=== PATIENT | female | born 1950 | race Caucasian/White ===

== ENCOUNTER 2018-01-23 13:27 | Outpatient (CLI) | payer BC | END 2018-01-23 18:53 | disposition home or self-care (01) | LOC: SMA 13:27 | PROVIDERS: ATTEND Family Medicine | DX: R92.8 Other abnormal and inconclusive findings on diagnostic imaging of breast (principal) | CPT/HCPCS: 76641; 77066 ==

== ENCOUNTER 2019-02-26 14:31 | Outpatient (CLI) | payer BC | END 2019-02-26 21:01 | disposition home or self-care (01) | LOC: SMA 14:31 | PROVIDERS: ATTEND Family Medicine | DX: Z12.31 Encounter for screening mammogram for malignant neoplasm of breast (principal) | CPT/HCPCS: 77067 ==

== ENCOUNTER 2020-07-30 09:18 | Outpatient (CLI) | payer BC | END 2020-07-30 20:48 | disposition home or self-care (01) | LOC: SMA 09:18 | PROVIDERS: ATTEND Family Medicine | DX: Z12.31 Encounter for screening mammogram for malignant neoplasm of breast (principal) | CPT/HCPCS: 77067 ==

== ENCOUNTER 2021-08-03 08:58 | Outpatient (CLI) | payer BC | END 2021-08-03 19:27 | disposition home or self-care (01) | LOC: SMA 08:58 | PROVIDERS: ATTEND Family Medicine | DX: Z12.31 Encounter for screening mammogram for malignant neoplasm of breast (principal); N64.89 Other specified disorders of breast | CPT/HCPCS: 77067 ==

== ENCOUNTER 2023-02-17 10:26 | Emergency (ER) | payer BC ==
[~2023-02-17] VITALS: Ht 162.6 cm; Wt 76.2 kg
[2023-02-17 10:35] VITALS: BP_SYST 131
--- NOTE | 2023-02-17 10:57 | NUR ---
Placed in room 2 . Placed on rn cardiac, blood pressure machine and pulse oximeter. To gown for exam. Side rails up. Report given to Raffaele QUESADA.
--- NOTE | 2023-02-17 11:00 | NUR ---
Patient BIB spouse from home. Chief Complaint:patient reports hx of radical hysterectomy on 01.12.23 for Uterine CA. 3 paracentesis needed since procedure with most recent being 02.13.23. Patient reports experiencing vaginal leakage of fluid that she describes as ascites like in color and consistency with blood tinge, patient reports leakage exceeds multiple pads unable to count how many. Patient denies pain at this time. Patient a&ox4 and stable. at bedside.
--- NOTE | 2023-02-17 11:03 | NUR ---
Lab at bedside
--- NOTE | 2023-02-17 11:08 | NUR ---
Patient advised by US not to urinate yet.
--- NOTE | 2023-02-17 11:14 | NUR ---
Patient taken to radiology now.
[2023-02-17 11:15] LABS: BASOPHILS # (AUTO) 0.1 K/uL (0.0-0.2); BASOPHILS % (AUTO) 0.8 % (0.0-2.0); EOSINOPHILS # (AUTO) 0.3 K/uL (0.0-0.4); EOSINOPHILS % (AUTO) 3.3 % (0.0-4.0); HEMATOCRIT 31.5 % (36-48); HEMOGLOBIN 10.5 g/dL (12.0-16.0); LYMPHOCYTES # (AUTO) 1.2 K/uL (1.0-5.5); LYMPHOCYTES % (AUTO) 14.4 % (20.5-51.5); MEAN CORPUSCULAR HEMOGLOBIN 29 pg (27-31); MEAN CORPUSCULAR HGB CONC 33 % (32-36); MEAN CORPUSCULAR VOLUME 87 fL (79.0-98.0); MONOCYTES # (AUTO) 0.4 K/uL (0.0-1.0); MONOCYTES % (AUTO) 4.6 % (1.7-9.3); NEUTROPHILS # (AUTO) 6.3 K/uL (1.8-7.7); NEUTROPHILS % (AUTO) 76.9 % (40.0-70.0); PLATELET COUNT (AUTO) 374 K/uL (130-430); RED BLOOD CELL COUNT(AUTO) 3.62 MIL/uL (4.2-6.2); RED CELL DISTRIBUTION WIDTH 13.4 % (9.0-15.0); WHITE BLOOD COUNT (AUTO) 8.1 K/uL (4.8-10.8)
[2023-02-17 11:27] LABS: ANION GAP 6 (5-15); CALCIUM 8.5 mg/dL (8.4-11.0); CHLORIDE 101 mmol/L (98-107); CREATININE 0.85 mg/dL (0.55-1.30); GLUCOSE 147 mg/dL (70-99); UREA NITROGEN, BLOOD 14 mg/dL (8-21)
[2023-02-17 11:32] LABS: ALANINE AMINOTRANSFERASE 14 U/L (12-78); ALBUMIN 2.4 g/dL (3.4-4.8); ASPARTATE AMINOTRANSFERASE 13 U/L (10-37); TOTAL BILIRUBIN 0.2 mg/dL (0.0-1.0)
[2023-02-17 11:41] LABS: PROTHROMBIN TIME 10.4 SECS (9.5-12.5)
--- NOTE | 2023-02-17 12:40 | NUR ---
Urine taken to lab
--- NOTE | 2023-02-17 13:11 | NUR ---
DR. EL AT BEDSIDE TO DISCUSS POC.
[2023-02-17 13:24] LABS: BILIRUBIN,URINE NEGATIVE (NEGATIVE); CLARITY/URINE CLEAR (CLEAR); COLOR,URINE YELLOW (YELLOW); GLUCOSE,URINE NEGATIVE (NEGATIVE); KETONES,URINE NEGATIVE (NEGATIVE); LEUKOCYTE ESTERASE ,URINE TRACE (NEGATIVE); NITRITE, URINE NEGATIVE (NEGATIVE); PH,URINE 6.5 (5.0-8.0); PROTEIN URINE NEGATIVE (NEGATIVE); UROBILINOGEN,URINE 0.2 (0.2-1.0)
[2023-02-17 13:26] LABS: BLOOD, URINE TRACE (NEGATIVE)
[2023-02-17 13:45] LABS: RBC,URINE 0-3 /HPF (0-3); WBC,URINE 0-3 /HPF (0-3)
[2023-02-17 13:46] LABS: BACTERIA,URINE FEW /HPF (None Seen)
[2023-02-17 14:24] VITALS: BP_SYST 123
--- NOTE | 2023-02-17 14:27 | NUR ---
Patient given written and verbal discharge instructions and verbalizes understanding. ER MD Lucero discussed with patient the results and treatment provided. Patient in stable condition. Opportunity for questions provided and answered. Medication side effect fact sheet provided.
== END 2023-02-17 14:27 | disposition home or self-care (01) ==
LOC: SED 10:26
DX: N93.9 Abnormal uterine and vaginal bleeding, unspecified (principal); Z85.42 Personal history of malignant neoplasm of other parts of uterus; Z79.899 Other long term (current) drug therapy
CPT/HCPCS: 36415; 76376; 76857; 80053; 81000; 85025; 85610-TC; 85730-TC; 87086; 99284

== ENCOUNTER 2023-02-21 10:24 | Emergency (ER) | payer BC ==
[~2023-02-21] VITALS: Ht 162.6 cm; Wt 77.1 kg
[2023-02-21 10:30] VITALS: BP_SYST 131
--- NOTE | 2023-02-21 11:10 | NUR ---
Pt brought by self, A&Ox4, pt presents to ER for Hemoglobin levels f/u, per patient last monday Hgb was 10.1, c/o mild weakness, denies bleeding SOB or chest pain, skin pink and warm, cap refill <3, will cont to monitor.
[2023-02-21 11:57] LABS: BASOPHILS # (AUTO) 0.1 K/uL (0.0-0.2); EOSINOPHILS # (AUTO) 0.3 K/uL (0.0-0.4); EOSINOPHILS % (AUTO) 3.7 % (0.0-4.0); HEMATOCRIT 32.8 % (36-48); HEMOGLOBIN 10.9 g/dL (12.0-16.0); LYMPHOCYTES # (AUTO) 1.3 K/uL (1.0-5.5); LYMPHOCYTES % (AUTO) 17.4 % (20.5-51.5); MEAN CORPUSCULAR HEMOGLOBIN 29 pg (27-31); MEAN CORPUSCULAR HGB CONC 33 % (32-36); MEAN CORPUSCULAR VOLUME 88 fL (79.0-98.0); MONOCYTES # (AUTO) 0.5 K/uL (0.0-1.0); MONOCYTES % (AUTO) 6.3 % (1.7-9.3); NEUTROPHILS # (AUTO) 5.6 K/uL (1.8-7.7); NEUTROPHILS % (AUTO) 71.6 % (40.0-70.0); PLATELET COUNT (AUTO) 368 K/uL (130-430); RED BLOOD CELL COUNT(AUTO) 3.71 MIL/uL (4.2-6.2); RED CELL DISTRIBUTION WIDTH 13.5 % (9.0-15.0); WHITE BLOOD COUNT (AUTO) 7.8 K/uL (4.8-10.8)
--- NOTE | 2023-02-21 12:00 | NUR ---
Patient to ER bed triage to gown for evaluation. Side rails up.
--- NOTE | 2023-02-21 12:05 | NUR ---
ER Dr. Lucero at bedside examining patient.
[2023-02-21 12:12] LABS: ANION GAP 5 (5-15); CALCIUM 8.7 mg/dL (8.4-11.0); CHLORIDE 103 mmol/L (98-107); CREATININE 0.91 mg/dL (0.55-1.30); GLUCOSE 108 mg/dL (70-99); UREA NITROGEN, BLOOD 12 mg/dL (8-21)
[2023-02-21 12:13] LABS: PROTHROMBIN TIME 10.7 SECS (9.5-12.5)
[2023-02-21 12:16] LABS: ALANINE AMINOTRANSFERASE 13 U/L (12-78); ALBUMIN 2.3 g/dL (3.4-4.8); ASPARTATE AMINOTRANSFERASE 22 U/L (10-37); TOTAL BILIRUBIN 0.2 mg/dL (0.0-1.0)
--- NOTE | 2023-02-21 13:00 | NUR ---
Patient given written and verbal discharge instructions and verbalizes understanding. ER MD discussed with patient the results and treatment provided. Patient in stable condition. ID arm band removed. no Rx of given. Patient educated on pain management and to follow up with PMD. Pain Scale 0. Opportunity for questions provided and answered. Medication side effect fact sheet provided.
== END 2023-02-21 13:00 | disposition home or self-care (01) ==
LOC: SED 10:24
DX: N89.8 Other specified noninflammatory disorders of vagina (principal); R10.9 Unspecified abdominal pain; Z90.710 Acquired absence of both cervix and uterus; Z79.899 Other long term (current) drug therapy
CPT/HCPCS: 36415; 80053; 85025; 85610-TC; 99283

== ENCOUNTER 2023-03-02 08:57 | Emergency (ER) | payer BC ==
[~2023-03-02] VITALS: Ht 162.6 cm; Wt 81.6 kg
[2023-03-02 09:10] VITALS: BP_SYST 136
--- NOTE | 2023-03-02 09:12 | NUR ---
Patient triaged and placed in waiting room. VSS and patient appears in no acute distress at this time. Accompanied by FAMILY, awaiting available bed, and MD notified of need for MSE.
--- NOTE | 2023-03-02 09:40 | NUR ---
DR EL OUT TO TRIAGE ROOM TO EVALUATE PT.
[2023-03-02 09:52] LABS: BASOPHILS # (AUTO) 0.1 K/uL (0.0-0.2); BASOPHILS % (AUTO) 0.9 % (0.0-2.0); EOSINOPHILS # (AUTO) 0.2 K/uL (0.0-0.4); EOSINOPHILS % (AUTO) 3.2 % (0.0-4.0); HEMATOCRIT 33.7 % (36-48); HEMOGLOBIN 11.2 g/dL (12.0-16.0); LYMPHOCYTES # (AUTO) 1.1 K/uL (1.0-5.5); LYMPHOCYTES % (AUTO) 15.3 % (20.5-51.5); MEAN CORPUSCULAR HEMOGLOBIN 29 pg (27-31); MEAN CORPUSCULAR HGB CONC 33 % (32-36); MEAN CORPUSCULAR VOLUME 88 fL (79.0-98.0); MONOCYTES # (AUTO) 0.5 K/uL (0.0-1.0); NEUTROPHILS # (AUTO) 5.2 K/uL (1.8-7.7); NEUTROPHILS % (AUTO) 73.6 % (40.0-70.0); PLATELET COUNT (AUTO) 352 K/uL (130-430); RED BLOOD CELL COUNT(AUTO) 3.83 MIL/uL (4.2-6.2); RED CELL DISTRIBUTION WIDTH 13.8 % (9.0-15.0); WHITE BLOOD COUNT (AUTO) 7.1 K/uL (4.8-10.8)
--- NOTE | 2023-03-02 09:55 | NUR ---
PT STATES THAT SHE HAS BEEN HAVING SWELLING/ASCITES TO ABD, FEELS LIKE A BAND IS AROUND ABDOMEN. PT STATES HER LAST PARACENTESIS WAS IN JANUARY AROUND THE . PT STATES SLIGHT SOB DUE TO ASCITES, NO DISTRESS, SPEAKING IN FULL SENTENCES.
[2023-03-02 10:09] LABS: ANION GAP 5 (5-15); CALCIUM 8.9 mg/dL (8.4-11.0); CHLORIDE 98 mmol/L (98-107); CREATININE 1.08 mg/dL (0.55-1.30); GLUCOSE 121 mg/dL (70-99); UREA NITROGEN, BLOOD 18 mg/dL (8-21)
[2023-03-02 10:15] LABS: ALANINE AMINOTRANSFERASE 19 U/L (12-78); ALBUMIN 2.7 g/dL (3.4-4.8); AMYLASE 85 U/L (0-100); ASPARTATE AMINOTRANSFERASE 18 U/L (10-37); C-REACTIVE PROTEIN QUANT 1.4 mg/dL (0-0.5); LACTATE DEHYDROGENASE 175 U/L (81-234); LIPASE 160 U/L (73-393); TOTAL BILIRUBIN 0.3 mg/dL (0.0-1.0)
[2023-03-02 10:20] LABS: ACETONE, SERUM NEGATIVE (NEGATIVE)
--- NOTE | 2023-03-02 11:46 | NUR ---
Patient given written and verbal discharge instructions and verbalizes understanding. ER MD discussed with patient the results and treatment provided. Patient in stable condition. ID arm band removed. Rx of NONE given. Patient educated on pain management and to follow up with PMD. Pain Scale 0/10. Opportunity for questions provided and answered. Medication side effect fact sheet provided.
== END 2023-03-02 11:46 | disposition home or self-care (01) ==
LOC: SED 08:57
DX: R18.8 Other ascites (principal); R10.10 Upper abdominal pain, unspecified; K59.00 Constipation, unspecified; Z79.899 Other long term (current) drug therapy
CPT/HCPCS: 36415; 76376; 80053; 82009; 82150; 83605; 83615; 83690; 84484; 85025; 86140; 99284

== ENCOUNTER 2023-04-03 13:33 | Emergency (ER) | payer BC ==
[~2023-04-03] VITALS: Ht 162.6 cm; Wt 68.0 kg
[2023-04-03 13:39] VITALS: BP_SYST 151
[2023-04-03 15:25] LABS: EOSINOPHILS # (AUTO) 0.3 K/uL (0.0-0.4); HEMOGLOBIN 10.8 g/dL (12.0-16.0); MONOCYTES # (AUTO) 0.6 K/uL (0.0-1.0)
[2023-04-03 15:30] LABS: BASOPHILS % (AUTO) 0.3 % (0.0-2.0); EOSINOPHILS % (AUTO) 8.3 % (0.0-4.0); HEMATOCRIT 32.5 % (36-48); LYMPHOCYTES # (AUTO) 1.2 K/uL (1.0-5.5); LYMPHOCYTES % (AUTO) 33.7 % (20.5-51.5); MEAN CORPUSCULAR HEMOGLOBIN 29 pg (27-31); MEAN CORPUSCULAR HGB CONC 33 % (32-36); MEAN CORPUSCULAR VOLUME 86 fL (79.0-98.0); MONOCYTES % (AUTO) 16.2 % (1.7-9.3); NEUTROPHILS # (AUTO) 1.5 K/uL (1.8-7.7); NEUTROPHILS % (AUTO) 41.5 % (40.0-70.0); PLATELET COUNT (AUTO) 225 K/uL (130-430); RED BLOOD CELL COUNT(AUTO) 3.78 MIL/uL (4.2-6.2); RED CELL DISTRIBUTION WIDTH 14.7 % (9.0-15.0); WHITE BLOOD COUNT (AUTO) 3.5 K/uL (4.8-10.8)
[2023-04-03 15:35] LABS: ANION GAP 8 (5-15); CALCIUM 8.5 mg/dL (8.4-11.0); CHLORIDE 103 mmol/L (98-107); CREATININE 0.76 mg/dL (0.55-1.30); GLUCOSE 120 mg/dL (70-99); UREA NITROGEN, BLOOD 14 mg/dL (8-21)
[2023-04-03 15:36] LABS: PROTHROMBIN TIME 10.4 SECS (9.5-12.5)
[2023-04-03 15:42] LABS: ALANINE AMINOTRANSFERASE 111 U/L (12-78); ALBUMIN 2.8 g/dL (3.4-4.8); ASPARTATE AMINOTRANSFERASE 62 U/L (10-37); TOTAL BILIRUBIN 0.3 mg/dL (0.0-1.0)
[2023-04-03 17:18] VITALS: BP_SYST 115
== END 2023-04-03 17:21 | disposition home or self-care (01) ==
LOC: SED 13:33
DX: R06.02 Shortness of breath (principal); R18.0 Malignant ascites; Z98.890 Other specified postprocedural states; Z79.899 Other long term (current) drug therapy
CPT/HCPCS: 36415; 49083; 71045; 80053; 83880; 84484; 85025; 85610-TC; 93005; 99285

== ENCOUNTER 2023-09-29 16:45 | Emergency (ER) | payer BC ==
[~2023-09-29] VITALS: Ht 162.6 cm; Wt 74.8 kg
[2023-09-29 16:56] VITALS: BP_SYST 120; PULSE 87; RESP 18; TEMP 98.3; O2SAT 97
[2023-09-29 17:43] LABS: BASOPHILS # (AUTO) 0.1 K/uL (0.0-0.2); BASOPHILS % (AUTO) 0.9 % (0.0-2.0); EOSINOPHILS # (AUTO) 0.1 K/uL (0.0-0.4); EOSINOPHILS % (AUTO) 2.5 % (0.0-4.0); HEMATOCRIT 33.5 % (36-48); LYMPHOCYTES # (AUTO) 1.5 K/uL (1.0-5.5); LYMPHOCYTES % (AUTO) 25.8 % (20.5-51.5); MEAN CORPUSCULAR HEMOGLOBIN 31 pg (27-31); MEAN CORPUSCULAR HGB CONC 33 % (32-36); MEAN CORPUSCULAR VOLUME 93 fL (79.0-98.0); MONOCYTES # (AUTO) 0.7 K/uL (0.0-1.0); MONOCYTES % (AUTO) 11.4 % (1.7-9.3); NEUTROPHILS # (AUTO) 3.4 K/uL (1.8-7.7); NEUTROPHILS % (AUTO) 59.4 % (40.0-70.0); PLATELET COUNT (AUTO) 374 K/uL (130-430); RED BLOOD CELL COUNT(AUTO) 3.59 MIL/uL (4.2-6.2); RED CELL DISTRIBUTION WIDTH 15.9 % (9.0-15.0); WHITE BLOOD COUNT (AUTO) 5.7 K/uL (4.8-10.8)
[2023-09-29 17:57] LABS: ALANINE AMINOTRANSFERASE 7 U/L (12-78); ANION GAP 6 (5-15); ASPARTATE AMINOTRANSFERASE 17 U/L (10-37); CARBON DIOXIDE 29 mmol/L (23-29); CHLORIDE 100 mmol/L (98-107); CREATININE 0.84 mg/dL (0.55-1.30); GLUCOSE 95 mg/dL (74-106); LIPASE 24 U/L (16-77); POTASSIUM 3.9 mmol/L (3.5-5.1); SODIUM SERUM 135 mmol/L (136-145); TOTAL BILIRUBIN 0.3 mg/dL (0.0-1.0); TOTAL PROTEIN, SERUM 6.8 g/dL (6.4-8.3); UREA NITROGEN, BLOOD 12 mg/dL (8-21)
[2023-09-29] MEDS ORDERED: BACITRACIN ZINC 15 GM TOPICAL OINTMENT TP ONE (18:45)
[2023-09-29] MEDS ORDERED: DIPHENHYDRAMINE INJ 50 MG/ML VIAL IVP ONE ×2 (19:30→20:30)
[2023-09-29] MEDS ORDERED: NS 500 ML IV ONE (19:30)
[2023-09-29] MEDS ORDERED: METOCLOPRAMIDE HCL 10 MG/2 ML VIAL IVP ONE (19:30)
[2023-09-29] MEDS ORDERED: ONDA-8 TL (21:16)
[2023-09-29 21:49] VITALS: BP_SYST 118; PULSE 78; RESP 16; O2SAT 97
== END 2023-09-29 21:45 | disposition home or self-care (01) ==
LOC: SED 16:45
DX: K56.7 Ileus, unspecified (principal); R10.9 Unspecified abdominal pain; R11.0 Nausea; Z85.42 Personal history of malignant neoplasm of other parts of uterus; Z79.899 Other long term (current) drug therapy
CPT/HCPCS: 99285; 74176; 96374; 96361; 96375; 80053; 83690; 85025; 36415; 76376; 96376; J1200; J2765; J7030